=== PATIENT | male | born 1950 | race Caucasian/White ===

== ENCOUNTER 2018-05-14 23:40 | Emergency (ER) | payer MEDICARE ==
[2018-05-14 23:49] VITALS: RESP 18; TEMP 98.7
--- NOTE | 2018-05-14 23:56 | ED ---
General Adult HPI - General Chief complaint: Extremity Problem,Nontraumatic Stated complaint: Poss DVT Time Seen by Provider: 05/14/18 23:46 Source: patient, RN notes reviewed, old records reviewed Mode of arrival: wheelchair Limitations: no limitations - History of Present Illness Initial comments: This is a 60-year-old male to the ER for evaluation. They presents for evaluation of right leg pain right lower extremity pain. No history of DVT. Patient has right knee pain right calf pain. Mild swelling, no injury noted trauma, patient is able to ambulate. Patient is active, he does state he walks this morning. Effusion or swelling and pain developed throughout the day. No specific trauma noted. No fever no warmth and no redness appreciated - Related Data Home Medications Medication Instructions Recorded Confirmed Atorvastatin [Lipitor] 10 mg PO DAILY 05/14/18 05/14/18 Gabapentin [Neurontin] 300 mg PO BID 05/14/18 05/14/18 Previous Rx's Medication Instructions Recorded Naproxen [Naprosyn] 500 mg PO Q12HR PRN #30 tab 05/15/18 Allergies Allergy/AdvReac Type Severity Reaction Status Date / Time No Known Allergies Allergy Verified 05/14/18 23:49 Review of Systems ROS Statement: Those systems with pertinent positive or pertinent negative responses have been documented in the HPI. ROS Other: All systems not noted in ROS Statement are negative. Past Medical History Past Medical History: No Reported History History of Any Multi-Drug Resistant Organisms: None Reported Past Surgical History: Orthopedic Surgery Additional Past Surgical History / Comment(s): back sx. Past Psychological History: No Psychological Hx Reported Smoking Status: Current some day smoker Past Alcohol Use History: Occasional Past Drug Use History: None Reported General Exam - General Exam Comments Initial Comments: Right knee effusion, no erythema no warmth Limitations: no limitations General appearance: alert, in no apparent distress Head exam: Present: atraumatic, normocephalic, normal inspection Eye exam: Present: normal appearance, PERRL, EOMI. Absent: scleral icterus, conjunctival injection, periorbital swelling ENT exam: Present: normal exam, mucous membranes moist Neck exam: Present: normal inspection. Absent: tenderness, meningismus, lymphadenopathy Respiratory exam: Present: normal lung sounds bilaterally. Absent: respiratory distress, wheezes, rales, rhonchi, stridor Cardiovascular Exam: Present: regular rate, normal rhythm, normal heart sounds. Absent: systolic murmur, diastolic murmur, rubs, gallop, clicks GI/Abdominal exam: Present: soft, normal bowel sounds. Absent: distended, tenderness, guarding, rebound, rigid Extremities exam: Present: normal inspection, full ROM, normal capillary refill. Absent: tenderness, pedal edema, joint swelling, calf tenderness Back exam: Present: normal inspection Neurological exam: Present: alert, oriented X3, CN II-XII intact Psychiatric exam: Present: normal affect, normal mood Skin exam: Present: warm, dry, intact, normal color. Absent: rash Course Vital Signs 05/14/18 23:46 Temperature 98.7 F Pulse Rate 69 Respiratory 18 Rate Blood Pressure 182/88 O2 Sat by Pulse 95 Oximetry - Reevaluation(s) Reevaluation #1: 05/14/18 23:56 Patient has no chest pain no shortness of breath Reevaluation #2: 05/15/18 00:34 Patient is afebrile, is able to ambulate. Medical Decision Making - Radiology Data Radiology results: report reviewed (Ultrasound right knee as well as x-ray right knee are negative for DVT, negative cyst, negative for traumatic injury), image reviewed Disposition Clinical Impression: Effusion, right knee Disposition: HOME SELF-CARE Condition: Good Instructions: Swollen Knee Joint (ED) Prescriptions: Naproxen [Naprosyn] 500 mg PO Q12HR PRN #30 tab PRN Reason: Pain Is patient prescribed a controlled substance at d/c from ED?: No Referrals: Juan Rodgers MD [Primary Care Provider] - 1-2 days Mk Barillas DO [Doctor of Osteopathic Medicine] - 1-2 days
[2018-05-15] MEDS ORDERED: KETOROLAC 60 MG/2 ML VIAL IM STA (00:06)
[2018-05-15] MEDS ORDERED: HYDROcodone/APAP 5-325MG 1 EACH TAB PO STA (00:06)
--- NOTE | 2018-05-15 00:47 | US ---
EXAMINATION TYPE: US venous doppler duplex LE RT DATE OF EXAM: 05/15/2018 12:41 AM COMPARISON: NONE CLINICAL HISTORY: Pain. Right leg edema SIDE PERFORMED: Right TECHNIQUE: The lower extremity deep venous system is examined utilizing real time linear array sonog koby with graded compression, doppler sonography and color-flow sonography. VESSELS IMAGED: External Iliac Vein (EIV) Common Femoral Vein Deep Femoral Vein Greater Saphenous Vein * Femoral Vein Popliteal Vein Small Saphenous Vein * Proximal Calf Veins (* superficial vessels) No evidence of DVT right leg. Fluid pocket seen anterior and medial knee. Right Leg: Negative for DVT IMPRESSION: Negative exam. No evidence of deep venous thrombosis in the right leg.
--- NOTE | 2018-05-15 00:52 | XR ---
EXAMINATION TYPE: XR knee complete RT DATE OF EXAM: 05/15/2018 COMPARISON: NONE HISTORY: Knee pain TECHNIQUE: 3 views FINDINGS: I see no fracture nor dislocation. There is a small knee joint effusion. There is calcifica tion of the lateral meniscus. Joint spaces are fairly normal. There is vascular calcification. IMPRESSION: Mild chondrocalcinosis. Small knee joint effusion. No fracture seen.
[2018-05-15 01:02] VITALS: BP 125/83; PULSE 79
== END 2018-05-15 01:02 | disposition home or self-care (01) ==
LOC: EC 23:40
DX: M25.461 Effusion, right knee (principal); F17.200 Nicotine dependence, unspecified, uncomplicated; Z79.899 Other long term (current) drug therapy
CPT/HCPCS: 73562; 93971; 99284; 96372; J1885

== ENCOUNTER → 2021-03-23 | Outpatient (CLI) | payer MEDICARE ==
--- NOTE | 2021-03-23 09:12 | CTL ---
EXAMINATION TYPE: CT Low Dose Lung DATE OF EXAM ORDERED: 03/23/2021 COMPARISON: None HISTORY: . Low Dose CT Lung Screening CT DLP: [address] CTDI: 1.61 mGy IV CONTRAST USED: None. SCREENING VISIT: First visit COMPARISON: None. TECHNIQUE: Low dose computed tomography scan was performed through the chest at 1 millimeter thick se ctions and reconstructed images in the coronal plane at [address] DIAGNOSTIC QUALITY: Satisfactory FINDINGS: LUNG NODULES: Not presentLeft lung: no nodules identified.Right lung: no nodules identified. LUNGS: COPD: Severity: Mild Fibrosis: Severity:None Lymph nodes: None Other findings: None RIGHT PLEURAL SPACE: Effusion: None Calcification: None Thickening: None Pneumothorax: None LEFT PLEURAL SPACE: Effusion: None Calcification: None Thickening: None Pneumothorax: None HEART: Heart Size: Mildly enlarged Coronary calcification: Moderate Pericardial effusion: None OTHER FINDINGS: Upper abdomen: No significant abnormality Bony thorax: Degenerative changes Supraclavicular region: No significant abnormalityOther: No significant abnormalityI IMPRESSION: COPD with mild emphysematous change. Moderately dense coronary artery calcifications. No pulmonary nodularity identified. FOLLOW UP CT CHEST RECOMMENDATION: Follow-up screening in one year CT LUNG RAD: LUNG RAD CATEGORY 1 negative
== END | disposition home or self-care (01) ==
LOC: RADCTMAIN 08:23
PROVIDERS: ATTEND Internal Medicine
DX: Z12.2 Encounter for screening for malignant neoplasm of respiratory organs (principal); J43.9 Emphysema, unspecified; I25.10 Atherosclerotic heart disease of native coronary artery without angina pectoris; F17.210 Nicotine dependence, cigarettes, uncomplicated
CPT/HCPCS: 71271

== ENCOUNTER → 2021-04-21 | Outpatient (CLI) | payer MEDICARE ==
[~2021-04-21] MED LIST: REGADENOSON 0.4 MG/5 ML SYRINGE IV ONE
--- NOTE | 2021-04-21 10:38 | P.STRESS ---
- Stress Test Note Stress Test Results/Findings: Exam Performed: NM stress lexiscan cardiolite Exam Date: 04/21/21 Reason for Exam: Abnormal CT Height: 5 ft 10 in Weight: 77.111 kg Protocol: Lexiscan Stage: na Duration of Exercise: na Resting Heart Rate: 66 Resting Blood Pressure: 181/80 Maximum Achieved Heart Rate: 84 Maximum Achieved Blood Pressure: 181/80 85% PMHR: 127 100% PMHR: 149 METS: na Technologist Comment: Stress Test Results/Findings: This is a 71-year-old gentleman with history of hypertension and hypercholesterolemia and also smoking history, being evaluated for cardiac status. Apparently patient also had abnormal computed tomography scan. Stress data Baseline EKG showed sinus rhythm with a nonspecific ST-T abnormal ities. A standard dose of Lexiscan was infused. EKGs taken during or after infusion did not reveal any significant changes from the baseline. Final impression: #1. Negative Lexiscan stress test #2. Report on the nuclear images to be provided by the radiologist
--- NOTE | 2021-04-21 11:31 | NM ---
EXAMINATION TYPE: NM stress lexiscan cardiolite DATE OF EXAM: 04/21/2021 COMPARISON: NONE HISTORY: Chest pain TECHNIQUE: After the intravenous administration of 9.6 mCi Tc 99m Sestamibi - Cardiolite resting SPE CT images acquired 45 minutes post injection. The patient received 0.4mg Lexiscan, 24.6 mCi Tc 99m Sestamibi - Stress images obtained [address] injection FINDINGS: Review of stress and rest SPECT images demonstrates no distinct perfusion abnormality. Gated analysi s shows normal wall motion with an estimated left ventricular ejection fraction of 56 %. IMPRESSION: No scintigraphic evidence for reversible ischemia.
--- NOTE | 2021-04-24 08:55 | ECHOS ---
Stress Test Results/Findings: Exam Performed: NM stress lexiscan cardiolite Exam Date: 04/21/21 Reason for Exam: Abnormal CT Height: 5 ft 10 in Weight: 77.111 kg Protocol: Lexiscan Stage: na Duration of Exercise: na Resting Heart Rate: 66 Resting Blood Pressure: 181/80 Maximum Achieved Heart Rate: 84 Maximum Achieved Blood Pressure: 181/80 85% PMHR: 127 100% PMHR: 149 METS: na Technologist Comment: Stress Test Results/Findings: This is a 71-year-old gentleman with history of hypertension and hypercholesterolemia and also smoking history, being evaluated for cardiac status. Apparently patient also had abnormal computed tomography scan. Stress data Baseline EKG showed sinus rhythm with a nonspecific ST-T abnormalities. A standard dose of Lexiscan was infused. EKGs taken during or after infusion did not reveal any significant changes from the baseline. Final impression: #1. Negative Lexiscan stress test #2. Report on the nuclear images to be provided by the radiologist RYAN
== END | disposition home or self-care (01) ==
LOC: RADNMMAIN 07:43
PROVIDERS: ATTEND Internal Medicine
DX: R07.9 Chest pain, unspecified (principal)
CPT/HCPCS: 93017; 78452; A9500

== ENCOUNTER → 2021-05-17 | Outpatient (CLI) | payer MEDICARE ==
--- NOTE | 2021-05-17 10:55 | MR ---
EXAMINATION TYPE: MR brain wo/w con DATE OF EXAM: 05/17/2021 COMPARISON: None HISTORY: G 20 TECHNIQUE: Multiplanar, multisequence images of the brain and brainstem is performed without and with IV contras t, utilizing 7.5 mL intravenous Gadavist . FINDINGS: Diffusion weighted images demonstrate no evidence of a recent infarct or other diffusion ab normality. There is no extra-axial fluid collection. Periventricular, pericallosal and subcortical c onfluent and scattered hyperintensities are present and inversion recovery T2-weighted sequences. Th e ventricular system and cisternal spaces are normal in size and appearance. The brain volume is age appropriate, there is cortical atrophy. Midline structures demonstrate normal morphology. The craniocervical junction appears within normal limits. Post contrast images demonstrate no abnormal enhancement. The dural venous sinuses appear pa tent. The visualized sinuses are clear and the globes are intact. IMPRESSION: Nonspecific white matter demyelination may be due to chronic small vessel ischemic change , there is age-related atrophy. Dedicated Parkinson disease protocol was not performed. Niurka scan may be of benefit.
== END | disposition home or self-care (01) ==
LOC: RADMRIMAIN 08:28
PROVIDERS: ATTEND Internal Medicine
DX: R90.82 White matter disease, unspecified (principal)
CPT/HCPCS: 70553; A9585

== ENCOUNTER → 2021-06-07 | Outpatient (CLI) | payer MEDICARE ==
--- NOTE | 2021-06-08 14:38 | NM ---
EXAMINATION TYPE: NM DatScan Brain SPECT DATE OF EXAM: 06/07/2021 COMPARISON: NONE HISTORY: G 20 TECHNIQUE: 10 drops of Lugol's solution was administered 1 hour prior to injection as a thyroid bloc roberta agent. After the administration of 4.38 mCi I-123 Ioflupane DaTscan. Images obtained 3 hours p ost injection. SPECT images of the brain were acquired with axial and coronal reconstructions. FINDINGS: Abnormal uptake is noted along the striatum bilaterally. Decreased uptake present bilaterally right g reater than left. IMPRESSION: Abnormal KRYS scan supportive of parkinsonian syndrome
== END | disposition home or self-care (01) ==
LOC: RADNMMAIN 10:36
PROVIDERS: ATTEND Internal Medicine
DX: R94.02 Abnormal brain scan (principal)
CPT/HCPCS: 78803; A9584

== ENCOUNTER → 2022-07-13 | Outpatient (CLI) | payer MEDICARE ==
--- NOTE | 2022-07-13 14:58 | US ---
EXAMINATION TYPE: US carotid duplex BILAT DATE OF EXAM: 07/13/2022 COMPARISON: NONE CLINICAL HISTORY: I65.23 CAROTID STENOSIS. TECHNIQUE: Carotid duplex ultrasound examination. Indirect Doppler criteria was utilized. FINDINGS: EXAM MEASUREMENTS: RIGHT: Peak Systolic Velocity (PSV) cm/sec ----- Right CCA: 136 ----- Right ICA: 98.8 ----- Right ECA: 112 ICA/CCA ratio: 0.73 RIGHT: End Diastole cm/sec ----- Right CCA: 20.2 ----- Right ICA: 6.75 ----- Right ECA: 15.0 LEFT: Peak Systolic Velocity (PSV) cm/sec ----- Left CCA: 68.7 ----- Left ICA: 108 ----- Left ECA: 181 ICA/CCA ratio: 1.57 LEFT: End Diastole cm/sec ----- Left CCA: 16.8 ----- Left ICA: 35.2 ----- Left ECA: 16.7 VERTEBRALS (direction of flow): Right Vertebral: Antegrade Left Vertebral: Antegrade Rhythm: Normal VACUUM TESTER CANS NOTES: Bilateral intimal thickening, mild changes. No significant stenosis. IMPRESSION: No evidence for hemodynamic significant stenosis. Criteria for Assigning % of Stenosis / Diameter reduction (Estimation based on the indirect measurements of the internal carotid artery velocities (ICA PSV). 1. Normal (no stenosis)=ICA PSV < 125 cm/s: ratio < 2.0: ICA EDV<40 cm/s. 2. Less than 50% stenosis=ICA PSV < 125 cm/s: ratio < 2.0: ICA EDV<40 cm/s. 3. 50 to 69% stenosis=ICA PSV of 125 to 230 cm/s: ration 2.0 ? 4.0: ICA EDV 40-100 cm/s. 4. Greater than 70% stenosis to near occlusion= ICA PSV > 230 cm/s: ratio > 4.0: ICA EDV > 100 cm/s. 5. Near occlusion= ICA PSV velocities may be low or undetectable: variable ratio and ICA EDV. 6. Total occlusion=unable to detect flow.
== END | disposition home or self-care (01) ==
LOC: RADUSWWP 13:26
PROVIDERS: ATTEND Internal Medicine
DX: I65.23 Occlusion and stenosis of bilateral carotid arteries (principal)
CPT/HCPCS: 93880

== ENCOUNTER → 2022-07-30 | Outpatient (CLI) | payer MEDICARE ==
--- NOTE | 2022-07-30 11:23 | CTL ---
EXAMINATION TYPE: CT Low Dose Lung DATE OF EXAM ORDERED: 07/30/2022 COMPARISON: HISTORY: . Low Dose CT Lung Screening CT DLP: 87.[address] CTDI: 2.2 mGy IV CONTRAST USED: None. SCREENING VISIT: First visit COMPARISON: None. TECHNIQUE: Low dose computed tomography scan was performed through the chest at 1 millimeter thick se ctions and reconstructed images in the coronal plane at [address] DIAGNOSTIC QUALITY: Satisfactory FINDINGS: LUNG NODULES: Not presentLeft lung: no nodules identified.Right lung: no nodules identified. LUNGS: COPD: Severity: Mild Fibrosis: Severity:None Lymph nodes: None Other findings: None RIGHT PLEURAL SPACE: Effusion: None Calcification: None Thickening: None Pneumothorax: None LEFT PLEURAL SPACE: Effusion: None Calcification: None Thickening: None Pneumothorax: None HEART: Heart Size: Mildly enlarged Coronary calcification: Moderate Pericardial effusion: None OTHER FINDINGS: Upper abdomen: No significant abnormality Bony thorax: Degenerative changes Supraclavicular region: No significant abnormality Other: Ascending thoracic aortic aneurysm measuring 4.2 cm in AP dimension unchanged from prior study . IMPRESSION: No distinct pulmonary nodule appreciated. FOLLOW UP CT CHEST RECOMMENDATION: Follow-up screening in one year CT LUNG RAD: LUNG RAD CATEGORY 1 negative
== END | disposition home or self-care (01) ==
LOC: RADCTMAIN 10:13
PROVIDERS: ATTEND Internal Medicine
DX: Z87.891 Personal history of nicotine dependence (principal)
CPT/HCPCS: 71271

== ENCOUNTER → 2023-08-02 | Outpatient (CLI) | payer MEDICARE ==
[2023-08-02 08:48] LABS: African American GFR (CKD) >90 (>60 ml/min/1.73 sqM); Blood Urea Nitrogen 11 mg/dL (9-20); Non-African American GFR(CKD) >90 (>60 ml/min/1.73 sqM)
--- NOTE | 2023-08-02 13:14 | CT ---
EXAMINATION TYPE: CT angio chest DATE OF EXAM: 08/02/2023 9:28 AM COMPARISON: CT thorax 07/30/2022 HISTORY: Aneurysm of ascending aorta. CT DLP: 456.8 mGycm Automated exposure control for dose reduction was used. CONTRAST: CTA scan of the thorax is performed without and with IV Contrast, patient injected with 100ml mL of I sovue 370, pulmonary embolism protocol. 3-D postprocessing was performed. FINDINGS: There are marked emphysematous changes. There are no suspicious lung masses or nodules. There is no abnormal airspace/consolidative or interstitial density. There is no pleural effusion, pleural thickening or pneumothorax. There is borderline dilatation of the ascending thoracic aorta measuring approximately 3.9 cm. There are no filling defects within the pulmonary arteries or branches. There is no mediastinal, hilar or axillary adenopathy. Limited scanning the upper abdomen reveals no gross abnormality. The osseous structures are intact without focal osseous abnormality. IMPRESSION: 1. No evidence of pulmonary embolism. 2. Borderline location of ascending thoracic aorta measuring 3.9 cm. 3. Marked emphysematous change. 4. No suspicious lung mass or nodule. 5. No acute cardiopulmonary disease.
== END | disposition home or self-care (01) ==
LOC: RADCTMAIN 08:12
PROVIDERS: ATTEND Internal Medicine
DX: I71.21 Aneurysm of the ascending aorta, without rupture (principal); J43.9 Emphysema, unspecified
CPT/HCPCS: 82565; 84520; 71275; 36415; Q9967

== ENCOUNTER 2025-01-22 08:50 | Emergency (ER) | payer MEDICARE ==
[2025-01-22 09:08] VITALS: RESP 20
[2025-01-22] MEDS: HYDROmorphone 1 MG/ML 1 ML SYRINGE IM STA (09:34)
--- NOTE | 2025-01-22 09:48 | ED ---
General Adult HPI - General Chief complaint: Back Pain/Injury Stated complaint: Fall-Back pain Time Seen by Provider: 01/22/25 09:08 Source: patient, family, RN notes reviewed Mode of arrival: ambulatory Limitations: no limitations - History of Present Illness Initial comments: This is a 74-year-old male, history of parkinson's, presenting to the emergency department for complaint of lumbar back pain. He states that 2 weeks ago he fell onto his lower back and denies hitting his head or loss of consciousness. He has been having relatively persistent pain since however yesterday evening when he lifted up his right foot onto a chair to tie his shoe his pain intensified. He states that the pain wraps around to the anterior bilateral legs. He denies loss of bladder bowel continence or saddle seizures since the injury. He denies hematuria, dysuria, increased urinary frequency or urgency. Denies history of IV drug use, fevers, chills. Does have a history of lumbar spinal fusion over 40 years ago. Appointment scheduled with Dr. Mendiola in 2 weeks,. has been taking gabapentin and tylenol/motrin with minimal relief. Additionally, patient states that he has been having a difficult time completing activities of daily living due to increasing pain of his lower back. - Related Data Home Medications Medication Instructions Recorded Confirmed ARIPiprazole [Abilify] 2 mg PO DAILY 01/22/25 01/22/25 Atorvastatin [Lipitor] 40 mg PO DAILY 01/22/25 01/22/25 Carbidopa-Levodopa 25-100 mg 1 tab PO TID 01/22/25 01/22/25 [Sinemet 25-100] Escitalopram [Lexapro] 30 mg PO DAILY 01/22/25 01/22/25 Finasteride [Proscar] 5 mg PO DAILY 01/22/25 01/22/25 Gabapentin 600 mg PO BID 01/22/25 01/22/25 lisinopriL [Zestril] 20 mg PO DAILY 01/22/25 01/22/25 Previous Rx's Medication Instructions Recorded HYDROcodone/APAP 7.5-325MG [Railroad 1 tab PO Q6HR PRN 3 Days #12 tab 01/22/25 7.5-325] Allergies Allergy/AdvReac Type Severity Reaction Status Date / Time No Known Allergies Allergy Verified 01/22/25 10:21 Review of Systems ROS Statement: Those systems with pertinent positive or pertinent negative responses have been documented in the HPI. ROS Other: All systems not noted in ROS Statement are negative. Past Medical History Past Medical History: No Reported History Additional Past Medical History / Comment(s): Back, Parkinson History of Any Multi-Drug Resistant Organisms: None Reported Past Surgical History: Back Surgery, Orthopedic Surgery Additional Past Surgical History / Comment(s): back sx. Past Psychological History: No Psychological Hx Reported Smoking Status: Current some day smoker Past Alcohol Use History: Occasional Past Drug Use History: None Reported General Exam Limitations: no limitations Eye exam: Present: normal appearance, PERRL, EOMI. Absent: scleral icterus, conjunctival injection, periorbital swelling Respiratory exam: Present: normal lung sounds bilaterally. Absent: respiratory distress, wheezes, rales, rhonchi, stridor Cardiovascular Exam: Present: regular rate, normal rhythm, normal heart sounds. Absent: systolic murmur, diastolic murmur, rubs, gallop, clicks GI/Abdominal exam: Present: soft, normal bowel sounds. Absent: distended, tenderness, guarding, rebound, rigid Extremities exam: Present: normal inspection, full ROM, normal capillary refill. Absent: tenderness, pedal edema, joint swelling, calf tenderness Back exam: Present: normal inspection, tenderness (lumbar spine) Expanded Back exam: Negative Straight Leg Raising: Right, Left Neurological exam: Present: alert, oriented X3, CN II-XII intact Course Vital Signs 01/22/25 01/22/25 09:04 11:49 Temperature 98.8 F 98.6 F Pulse Rate 66 67 Respiratory 20 20 Rate Blood Pressure 127/64 128/76 O2 Sat by Pulse 95 96 Oximetry Medical Decision Making - Medical Decision Making Was pt. sent in by a medical professional or institution (, PA, [facility] [facility], urgent care, hospital, or snf...) When possible be specific @ -No Did you speak to anyone other than the patient for history (EMS, parent, family, police, friend...)? What history was obtained from this source @ -No Did you review nursing and triage notes (agree or disagree)? Why? @ -I reviewed and agree with nursing and triage notes Were old charts reviewed (outside hosp., previous admission, EMS record, old EKG, old radiological studies, urgent care reports/EKG's, snf records)? Report findings @ -No old charts were reviewed Differential Diagnosis (chest pain, altered mental status, abdominal pain women, abdominal pain men, vaginal bleeding, weakness, fever, dyspnea, syncope, headache, dizziness, GI bleed, back pain, seizure, CVA, palpatations, mental health, musculoskeletal)? @ -Differential Back Pain: Strain, zoster, cauda equina syndrome, epidural abscess, vertebral osteomyelitis, discitis, fracture, subluxation, disc herniation, DJD, spinal stenosis, dissection, AAA, pancreatitis, peptic ulcer disease, pyelonephritis, kidney stone, this is not meant to be an all-inclusive list. EKG interpreted by me (3pts min.). @ -none X-rays interpreted by me (1pt min.). @ -X-ray completed of the lumbar spine reveals no acute fracture or dislocation with advanced multilevel degeneration changes CT interpreted by me (1pt min.). @ -None done U/S interpreted by me (1pt. min.). @ -None done What testing was considered but not performed or refused? (CT, X-rays, U/S, labs)? Why? @ -None What meds were considered but not given or refused? Why? @ -None Did you discuss the management of the patient with other professionals (professionals i.e. , PA, [facility] [facility], lab, RT, psych nurse, high school social science teacher, logging equipment operator, teacher, wildlife conservation officer, catalytic case operator)? Give summary @ -No Was smoking cessation discussed for >3mins.? @ -No Was critical care preformed (if so, how long)? @ -No Were there social determinants of health that impacted care today? How? (Homelessness, low income, unemployed, alcoholism, drug addiction, transportation, low edu. Level, literacy, decrease access to med. care, care home, rehab)? @ -No Was there de-escalation of care discussed even if they declined (Discuss DNR or withdrawal of care, Hospice)? DNR status @ -No What co-morbidities impacted this encounter? (DM, HTN, Smoking, COPD, CAD, Cancer, CVA, ARF, Chemo, Hep., AIDS, mental health diagnosis, sleep apnea, morbid obesity)? @ -None Was patient admitted / discharged? Hospital course, mention meds given and route, prescriptions, significant lab abnormalities, going to OR and other pertinent info. @ -Discharge. 74-year-old male presenting to the emergency department for compl aint of lumbar back pain following a fall. Patient started to have pain with range of motion of the lumbar spine. There are no overlying skin changes. Negative red flag findings concerning for cauda equina. Negative straight leg test bilaterally. He is provided with dose of pain medication. X-ray reveals no acute fracture or dislocation. Due to patient having difficulty with completing activities of daily living he was offered admission for intractable back pain however he has declined. He states that he has a follow-up appointment scheduled with administration specialist in the next 2 weeks. He is provided with outpatient prescription for pain medications in addition to receiving a IM injection of Solu-Medrol prior to discharge. Return parameters have been discussed. Case discussed with Dr. Bran Undiagnosed new problem with uncertain prognosis? @ -No Drug Therapy requiring intensive monitoring for toxicity (Heparin, Nitro, Insulin, Cardizem)? @ -No Were any procedures done? @ -No Diagnosis/symptom? @ -lumbar back pain Acute, or Chronic, or Acute on Chronic? @ -acute Uncomplicated (without systemic symptoms) or Complicated (systemic symptoms)? @ -uncomplicated Side effects of treatment? @ -No Exacerbation, Progression, or Severe Exacerbation? @ -No Poses a threat to life or bodily function? How? (Chest pain, [place], VT, pneumonia, PE, COPD, DKA, ARF, appy, cholecystitis, CVA, Diverticulitis, Homicidal, Suicidal, threat to staff... and all critical care pts) @ -No Disposition Clinical Impression: Lumbar back pain Disposition: HOME SELF-CARE Condition: Good Instructions (If sedation given, give patient instructions): Acute Low Back Pain (ED) Additional Instructions: Return to the emergency department for any new or worsening symptoms. Take prescribed medication as needed for severe pain. Do not take this medication al ongside your gabapentin. Follow-up as scheduled with administration specialist for further evaluation. Prescriptions: HYDROcodone/APAP 7.5-325MG [Railroad 7.5-325] 1 tab PO Q6HR PRN 3 Days #12 tab PRN Reason: Severe Pain (Scale 7 To 10) Is patient prescribed a controlled substance at d/c from ED?: Yes When asked, does pt state using other controlled substances?: Yes If prescribed controlled substance>3 days was MAPS reviewed?: Prescribed <3 Days If Rx opioid, was Start Talking consent form obtained?: Yes Referrals: Juan Rodgers MD [Primary Care Provider] - 1-2 days Time of Disposition: 11:18
--- NOTE | 2025-01-22 10:33 | XR ---
EXAMINATION TYPE: XR lumbar spine 2 or 3V DATE OF EXAM: 01/22/2025 CLINICAL HISTORY: pain TECHNIQUE: Three views of the lumbar spine are submitted. COMPARISON: None. FINDINGS: There are 5 lumbar type vertebral bodies identified. The lumbar spine shows satisfactory alignment w ithout evidence of acute fracture or dislocation. Vertebral body heights are within normal limits. Multilevel disc space narrowing with endplate sclerosis and anterior osteophytosis. Multilevel facet arthropathy. The overlying soft tissue appears unremarkable. Atherosclerotic calcification of the ao rta. IMPRESSION: 1. No acute fracture or dislocation is seen in the lumbar spine. If there is continued clinical conc renetta, consider further evaluation with CT. 2. Advanced multilevel degenerative changes of the lumbar spine. [facility], , 01/22/2025 10:30 AM
[2025-01-22] MEDS: methylPREDNISolone SOD SUCCI 125 MG/2 ML VIAL IM ONE (11:37)
[2025-01-22 11:50] VITALS: BP 128/76; PULSE 67; TEMP 98.6
== END 2025-01-22 11:52 | disposition home or self-care (01) ==
LOC: EC 08:50
DX: M54.50 Low back pain, unspecified (principal); F17.200 Nicotine dependence, unspecified, uncomplicated; W19.XXXA Unspecified fall, initial encounter
CPT/HCPCS: 99283 ×2; 96372 ×3; 72100; J1171; J2919

== ENCOUNTER → 2025-02-09 | Outpatient (CLI) | payer MEDICARE ==
--- NOTE | 2025-02-09 19:22 | MR ---
EXAMINATION TYPE: MR lumbar spine wo con, CT lumbar spine wo con DATE OF EXAM: 02/09/2025 5:47 PM COMPARISON: 01/25/2025. CLINICAL INDICATION: Male, 74 years old with history of M47.26 LUMBAR SPONDYLOSIS M54.50 LOW BACK COREY N; [facility], Low back pain into left side x3 weeks, Hx back fusion 1979 TECHNIQUE: Multi planar, multi sequence imaging was performed utilizing: T1-weighted, T2-weighted, a nd turbo inversion recovery imaging of the lumbar spine. IV Contrast: mL (None, if empty) Axial CT imaging of the lumbar spine with sagittal and coronal reformats. FINDINGS: Alignment: The lumbar vertebral bodies have preserved heights with grade 1 anterolisthesis of L5 on S 1. Cord: The conus medullaris and the distal spinal cord appear unremarkable with regards to their signa l intensity and morphology. Bones/Discs: Multilevel severe degeneration changes with Modic endplate changes worse at L2 L3 and L1 -L2. Disc space narrowing osteophytes and facet joint arthropathy are seen throughout the lumbar spin e and worse in the lower spine with severe facet joint arthropathy. There is mild bony edema at the a djoining L2-L3 and L1-L2 endplates. Disc desiccation is present at multiple levels. There is no evide nce of fracture. There is bony fusion of the posterior elements of L4-L5 and S1. T12-L1: Right central disc extrusion with inferior migration up to 9 mm. No evidence for significant spinal canal stenosis. There is moderate right and [id number] left neural foraminal stenosis. L1-L2: No evidence of significant spinal canal stenosis. Facet joint arthropathy moderate bilateral n eural foraminal stenosis. L2-L3: No evidence of significant spinal canal stenosis. Facet joint arthropathy moderate to severe b ilateral neural foraminal stenosis. L3-L4: Disc bulge and facet joint arthropathy without significant spinal canal stenosis and moderate to severe left and moderate right neural foraminal stenosis. L4-L5: Disc bulge and facet joint arthropathy without significant spinal canal stenosis and mild to m oderate bilateral neural foraminal stenosis. L5-S1: Disc uncovering from grade 1 anterolisthesis and facet joint arthropathy with mild spinal saad l stenosis and mild bilateral neural foraminal stenosis. No significant spinal canal or neural foraminal stenosis in the remainder of the visualized levels. Other findings: Moderate severe coronary artery atherosclerosis. Right lower lobe airspace opacities and consolidation. IMPRESSION: 1. T12-L1 disc extrusion with inferior migration. No significant spinal canal or neural foraminal st enosis. 2. No no evidence of significant spinal canal stenosis. 3. 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 Neural foraminal stenosis as keith cribed above. 4. Grade 1 anterolisthesis of L5 on S1 without spondylolysis. 5. Post surgical changes L4-L5 and S1 with bony fusion of the posterior elements. 6. Right lower lobe airspace consolidation/opacities correlate for pneumonia consider complete evalu ation of the lungs with CT imaging. 7. No evidence of spinal fracture. [facility], , 02/09/2025 7:19 PM
== END | disposition home or self-care (01) ==
LOC: RADCTMAIN 16:20
PROVIDERS: ATTEND Orthopaedic Surgery
DX: M47.26 Other spondylosis with radiculopathy, lumbar region (principal); M51.16 Intervertebral disc disorders with radiculopathy, lumbar region; M99.73 Connective tissue and disc stenosis of intervertebral foramina of lumbar region; M43.17 Spondylolisthesis, lumbosacral region
CPT/HCPCS: 72131; 72148